=== PATIENT | female | born 1985 | race Caucasian/White ===

== ENCOUNTER → 2016-11-19 | Emergency (ER) | payer SELFPAY ==
[~2016-11-19] VITALS: Ht 154.9 cm; Wt 72.6 kg
[2016-11-19 16:40] VITALS: BP 124/82
== END ==
LOC: ER 16:27
DX: R10.11 Right upper quadrant pain (principal); Z53.21 Procedure and treatment not carried out due to patient leaving prior to being seen by health care provider

== ENCOUNTER 2017-12-06 11:17 | Emergency (ER) | payer OTHER ==
[~2017-12-06] VITALS: Ht 157.5 cm; Wt 74.8 kg
[2017-12-06] MEDS ORDERED: AZIT250T6 PO (11:44)
[2017-12-06] MEDS ORDERED: HYDR-971 PO (11:44)
[2017-12-06 12:04] VITALS: BP 118/82
[2017-12-06] MEDS ORDERED: DEXAMETHASONE 4 MG TABLET PO ONE (12:15)
[2017-12-06] MEDS ORDERED: AZITHROMYCIN 250 MG TABLET. PO ONE (12:15)
--- NOTE | 2017-12-06 13:38 | ED.ADGEN ---
Past History Past Medical History: No Pertinent History Past Surgical History: No Surgical History Alcohol Use: None Drug Use: None Adult General HPI HPI Patient is a 32 year old female who presents with sore throat. Patient has had a sore throat the last 48 hours. She developed a cough earlier today that she described to be productive of some sputum. She has not had a fever but has had some chills. No nausea or vomiting. Review of Systems Review of Systems Constitutional: Denies fever Eyes: Denies change in visual acuity HENT: + some nasal congestion, facial pain, sore throat Respiratory: Denies dyspnea GI: Denies abdominal pain Musculoskeletal: Denies back pain Integument: Denies rash Neurologic: Denies headache All other systems were reviewed and found to be within normal limits, except as documented in this note. Current Medications Current Medications Current Medications Medications (Trade) Dose Ordered Sig/Laury Start Time Stop Time Status Last Admin Dose Admin Azithromycin (Zithromax) 500 mg 1X ONCE 12/06/17 12:15 12/06/17 12:15 DC 12/06/17 12:02 500 MG Dexamethasone (Decadron) 10 mg 1X ONCE 12/06/17 12:15 12/06/17 12:15 DC 12/06/17 12:02 10 MG Allergies Allergies Allergies Coded Allergies Type Severity Reaction Last Updated Verified No Known Drug Allergies 01/18/16 No Physical Exam Physical Exam Constitutional: Well developed, well nourished, no acute distress, non-toxic appearance HENT: Normocephalic, atraumatic, bilateral external ears normal, oral pharynx is erythematous and there are some small white spots noted which could be cryptic debris or small exudates, TMs are dull Eyes: PERRLA, EOMI, conjunctiva normal Neck: Normal range of motion Cardiovascular:Heart rate regular rhythm, no murmur Lungs & Thorax: Bilateral breath sounds clear to auscultation Abdomen: Bowel sounds normal, soft Skin: Warm, dry, no erythema, no rash Current Patient Data Vital Signs Vital Signs Date Time Temp Pulse Resp B/P (MAP) Pulse Ox O2 Delivery O2 Flow Rate FiO2 12/06/17 12:04 84 16 118/82 (94) 98 Room Air 12/06/17 11:25 98.2 EKG EKG [] Radiology/Procedures Radiology/Procedures [] Course & Med Decision Making Course & Med Decision Making Pertinent Labs and Imaging studies reviewed. (See chart for details) Patient is seen and examined on arrival. She is in no acute distress. She has some findings suspicious for strep throat although she also has some viral symptoms. Some sinus tenderness to palpate. She is nontoxic in appearance. She has no nausea or vomiting. Plan is to treat her throat pain with a single dose of Decadron in the emergency room. She'll be discharged home with azithromycin. She is given the first dose in the ER. She is provided some medications for pain relief at home. Opiate precautions are discussed. She is given a work note. Patient is encouraged to follow-up with her primary care doctor or return to the ER for any new or worsening symptoms. She is agreeable to the plan of care and all of her questions are answered prior to discharge. Final Impression Final Impression Pharyngitis Otitis Dragon Disclaimer Dragon Disclaimer This electronic medical record was generated, in whole or in part, using a voice recognition dictation system. HEATHER MANCILLA DO Dec 06, 2017 13:38
== END 2017-12-06 12:06 | disposition home or self-care (01) ==
LOC: ER 11:17
DX: J02.9 Acute pharyngitis, unspecified (principal); H66.93 Otitis media, unspecified, bilateral
CPT/HCPCS: 99283; J0456; J8540